=== PATIENT | female | born 1940 | race Caucasian/White ===

== ENCOUNTER 2019-11-23 21:23 | Outpatient (REF) | payer OTHER, SELFPAY ==
[2019-11-23 22:04] LABS: HCT 41.5 % (36.0-46.0); HGB 13.3 g/dL (11.2-15.7); MCH 29.2 pg (27.0-33.0); MCV 91.2 fL (80-95); MPV 10.7 fL (8.0-11.0); Platelet Count 199 10^3/uL (130-400); RBC 4.55 10^6/uL (3.93-5.22); RDW 14.5 % (11.7-14.6); RDW-SD 48.6 fL; WBC 4.91 10^3/uL (4.4-10.8)
[2019-11-23 22:18] LABS: ALT 33 U/L (14-59); AST 32 U/L (15-37); Albumin 4.1 g/dL (3.4-5.0); Alkaline Phosphatase 79 U/L (46-116); Anion Gap 7.3 mmol/L (3-11); BUN 18 mg/dL (7-18); Bilirubin, Total 0.9 mg/dL (0.2-1.0); CO2 30.7 mmol/L (21.0-32.0); CREATININE 0.58 mg/dL (0.55-1.02); Calcium 9.1 mg/dL (8.5-10.1); Calculated LDL 103 mg/dL (<100); Chloride 105 mmol/L (98-107); Cholesterol 169 mg/dL (<200); Glucose 82 mg/dL (74-106); HDL Cholesterol 54 mg/dL (40-60); Potassium 3.8 mmol/L (3.5-5.1); Sodium 143 mmol/L (136-145); Total Protein 7.1 g/dL (6.4-8.2); Triglyceride 64 mg/dL (<150)
== END 2019-11-23 21:43 ==
LOC: NCHCN 21:23
PROVIDERS: PCP Nurse Practitioner Community Health; Visit Provider Nurse Practitioner Community Health
DX: I10 Essential (primary) hypertension (principal); I48.91 Unspecified atrial fibrillation; Z79.899 Other long term (current) drug therapy; Z79.01 Long term (current) use of anticoagulants
CPT/HCPCS: 80053; 80061; 85027

== ENCOUNTER 2020-12-05 11:59 | Outpatient (REF) | payer MEDICARE, SELFPAY ==
[2020-12-05 22:00] LABS: Anion Gap 8.5 mmol/L (3-11); BUN 14 mg/dL (7-18); CO2 29.5 mmol/L (21.0-32.0); CREATININE 0.6 mg/dL (0.55-1.02); Calcium 8.7 mg/dL (8.5-10.1); Chloride 105 mmol/L (98-107); Glucose 78 mg/dL (74-106); Potassium 4.2 mmol/L (3.5-5.1); Sodium 143 mmol/L (136-145)
== END 2020-12-05 12:00 | disposition home or self-care (01) ==
LOC: NCHCN 11:59
PROVIDERS: PCP Nurse Practitioner Community Health; Visit Provider Nurse Practitioner Community Health
DX: I10 Essential (primary) hypertension (principal)
CPT/HCPCS: 80048

== ENCOUNTER 2021-06-05 17:25 | Outpatient (REF) | payer MEDICARE, SELFPAY ==
[2021-06-05 16:35] LABS: Abs Immature Grans 0.01 10^3/uL (0.0-0.06); Absolute Basophil Count 0.08 10^3/uL (0.0-0.2); Absolute Lymphocyte Count 1.19 10^3/uL (1.2-3.4); Absolute Monocyte Count 0.83 10^3/uL (0.1-0.8); Absolute Neutrophil Count 3.19 10^3/uL (1.2-6.7); Basophils % 1.5; Eosinophils % 1.9; HCT 43.7 % (36.0-46.0); HGB 13.5 g/dL (11.2-15.7); Immature Grans % 0.2; MCH 26.6 pg (27.0-33.0); MCHC 30.9 % (32.0-36.0); MCV 86.2 fL (80-95); MPV 11.8 fL (8.0-11.0); Monocytes % 15.4; Platelet Count 170 10^3/uL (130-400); RBC 5.07 10^6/uL (3.93-5.22); RDW 17.1 % (11.7-14.6); RDW-SD 52.1 fL
[2021-06-05 17:09] LABS: ALT 27 U/L (14-59); AST 32 U/L (15-37); Albumin 3.8 g/dL (3.4-5.0); Alkaline Phosphatase 98 U/L (46-116); Anion Gap 7.9 mmol/L (3-11); BUN 13 mg/dL (7-18); Bilirubin, Total 1.3 mg/dL (0.2-1.0); CO2 29.1 mmol/L (21.0-32.0); CREATININE 0.6 mg/dL (0.55-1.02); Calcium 8.7 mg/dL (8.5-10.1); Chloride 104 mmol/L (98-107); Glucose 76 mg/dL (74-106); Potassium 4.2 mmol/L (3.5-5.1); Sodium 141 mmol/L (136-145); TSH 3.77 uIU/mL (0.36-3.74); Total Protein 7.2 g/dL (6.4-8.2)
--- OUTSIDE RECORDS SUMMARY | 2021-06-05 17:27 | XMS_ITS | CCD ---
:1940 Author Care Team Providers Name Role Phone VICTORINA TORRES Attending Physician Unavailable Vital Signs Unknown or Not Available. Allergies Unknown or Not Available. Procedures Unknown or Not Available. History of Immunizations Unknown or Not Available. Problems Unknown or Not Available. Results Unknown or Not Available. Active Medications Unknown or Not Available. Medications Administered During Visit Unknown or Not Available. Encounters Unknown or Not Available. Social History Smoking Status Code Start Date End Date Never smoker [id number] Patient Decision Aids Unknown or Not Available. Discharge Instructions You were admitted to [facility] on 06/05/2021 13:31 You were discharged from [facility] on 06/05/2021 13:31 Should you have any questions prior to d ischarge, please contact a member of your healthcare team. If you have left the [facility] and have any questions, please contact your primary care physician. Chief Complaint and Reason For Visit Unknown or Not Available. Function Status Unknown or Not Available. Plan of Care Unknown or Not Available. Referral/Transition of Care Unknown or Not Available.
[2021-06-05 18:37] LABS: Ferritin 45 ng/mL (8-252); T4 7.1 ug/mL (4.7-13.3)
[2021-06-06 08:41] LABS: NT-proBNP 641 pg/mL (<300)
== END 2021-06-05 17:26 | disposition home or self-care (01) ==
LOC: NCHCN 17:25
PROVIDERS: PCP Nurse Practitioner Community Health; Visit Provider Registered Nurse
DX: R06.00 Dyspnea, unspecified (principal); R94.6 Abnormal results of thyroid function studies; R79.89 Other specified abnormal findings of blood chemistry
CPT/HCPCS: 80053; 82728; 83735; 83880; 84436; 84443; 85025

== ENCOUNTER 2021-07-26 20:18 | Outpatient (REF) | payer MEDICARE, SELFPAY ==
[2021-07-26 21:02] LABS: Abs Immature Grans 0.02 10^3/uL (0.0-0.06); Absolute Basophil Count 0.12 10^3/uL (0.0-0.2); Absolute Eosinophil Count 0.22 10^3/uL (0.0-0.7); Absolute Lymphocyte Count 1.33 10^3/uL (1.2-3.4); Absolute Monocyte Count 0.71 10^3/uL (0.1-0.8); Absolute Neutrophil Count 3.01 10^3/uL (1.2-6.7); Basophils % 2.2; Eosinophils % 4.1; HCT 40.7 % (36.0-46.0); HGB 13.1 g/dL (11.2-15.7); Immature Grans % 0.4; Lymphocytes % 24.6; MCH 26.9 pg (27.0-33.0); MCHC 32.2 % (32.0-36.0); MCV 84 fL (80-95); MPV 11.7 fL (8.0-11.0); Monocytes % 13.1; Neutrophils % 55.6; Platelet Count 145 10^3/uL (130-400); RBC 4.87 10^6/uL (3.93-5.22); RDW 16.9 % (11.7-14.6); RDW-SD 50.6 fL; WBC 5.41 10^3/uL (4.4-10.8)
[2021-07-26 21:23] LABS: ALT 32 U/L (14-59); AST 37 U/L (15-37); Albumin 3.9 g/dL (3.4-5.0); Alkaline Phosphatase 118 U/L (46-116); Anion Gap 11.3 mmol/L (3-11); BUN 18 mg/dL (7-18); Bilirubin, Total 1.6 mg/dL (0.2-1.0); CO2 26.7 mmol/L (21.0-32.0); Calcium 8.9 mg/dL (8.5-10.1); Chloride 101 mmol/L (98-107); Estimated GFR 53.35 (mL/min/1.73m2); Ferritin 31 ng/mL (8-252); Glucose 69 mg/dL (74-106); NT-proBNP 525 pg/mL (<300); Potassium 4.2 mmol/L (3.5-5.1); Sodium 139 mmol/L (136-145); TSH (W/Ref FT4) 6.13 uIU/mL (0.36-3.74); Total Protein 7.4 g/dL (6.4-8.2)
[2021-07-26 21:41] LABS: Prothrombin Time 52.9 sec (9.3-11.0)
[2021-07-26 22:01] LABS: INR 5.9 (0.9-1.1)
[2021-07-26 22:17] LABS: FREE T4 1.24 ng/dL (0.76-1.46)
== END 2021-07-26 20:19 | disposition home or self-care (01) ==
LOC: NCHCN 20:18
PROVIDERS: PCP Nurse Practitioner Community Health; Visit Provider Registered Nurse
DX: I48.91 Unspecified atrial fibrillation (principal); I10 Essential (primary) hypertension; R91.1 Solitary pulmonary nodule
CPT/HCPCS: 80053; 82728; 83880; 84439; 84443; 85025; 85610

== ENCOUNTER 2021-09-17 15:13 | Outpatient (REF) | payer MEDICARE, SELFPAY ==
[2021-09-17 18:51] LABS: TSH (W/Ref FT4) 1.23 uIU/mL (0.36-3.74)
== END 2021-09-17 15:14 | disposition home or self-care (01) ==
LOC: NCHCN 15:13
PROVIDERS: PCP Nurse Practitioner Community Health; Visit Provider Registered Nurse
DX: R94.6 Abnormal results of thyroid function studies (principal)
CPT/HCPCS: 84443

== ENCOUNTER 2021-12-18 17:16 | Outpatient (REF) | payer MEDICARE, SELFPAY ==
[2021-12-18 14:52] LABS: INR 4.7 (0.9-1.1)
[2021-12-18 20:46] LABS: HGB 12.4 g/dL (11.2-15.7); MCV 78 fL (80-95); MPV 10.9 fL (8.0-11.0); Platelet Count 181 10^3/uL (130-400); RBC 5.16 10^6/uL (3.93-5.22); RDW 17.2 % (11.7-14.6); RDW-SD 47.2 fL; WBC 5.13 10^3/uL (4.4-10.8)
[2021-12-18 21:04] LABS: Anion Gap 4.6 mmol/L (3-11); BUN 23 mg/dL (7-18); CO2 29.4 mmol/L (21.0-32.0); Calcium 9.1 mg/dL (8.5-10.1); Chloride 105 mmol/L (98-107); Estimated GFR 56.95 (mL/min/1.73m2); Glucose 82 mg/dL (74-106); NT-proBNP 696 pg/mL (<300); Potassium 4.4 mmol/L (3.5-5.1); Sodium 139 mmol/L (136-145)
== END 2021-12-18 17:17 | disposition home or self-care (01) ==
LOC: NCHCN 17:16
PROVIDERS: PCP Nurse Practitioner Community Health; Visit Provider Family Medicine
DX: Z79.01 Long term (current) use of anticoagulants (principal); I50.9 Heart failure, unspecified; R06.00 Dyspnea, unspecified
CPT/HCPCS: 80048; 85027; 83880; 85610

== ENCOUNTER 2022-01-23 20:46 | Outpatient (REF) | payer MEDICARE, SELFPAY ==
[2022-01-23 21:18] LABS: Anion Gap 7.9 mmol/L (3-11); BUN 15 mg/dL (7-18); CO2 28.1 mmol/L (21.0-32.0); CREATININE 0.9 mg/dL (0.55-1.02); Calcium 8.7 mg/dL (8.5-10.1); Chloride 102 mmol/L (98-107); Estimated GFR 64.63 (mL/min/1.73m2); Glucose 121 mg/dL (74-106); Potassium 3.8 mmol/L (3.5-5.1); Sodium 138 mmol/L (136-145)
== END 2022-01-23 20:47 | disposition home or self-care (01) ==
LOC: NCHCN 20:46
PROVIDERS: PCP Nurse Practitioner Community Health; Visit Provider Registered Nurse
DX: I10 Essential (primary) hypertension (principal)
CPT/HCPCS: 80048

== ENCOUNTER 2022-06-19 17:29 | Outpatient (REF) | payer MEDICARE, SELFPAY ==
[2022-06-19 15:16] LABS: Prothrombin Time 52.1 sec (9.3-11.0)
[2022-06-19 15:29] LABS: INR 5.2 (0.9-1.1)
[2022-06-19 20:42] LABS: Abs Immature Grans 0.01 10^3/uL (0.0-0.06); Absolute Basophil Count 0.09 10^3/uL (0.0-0.2); Absolute Eosinophil Count 0.08 10^3/uL (0.0-0.7); Absolute Lymphocyte Count 0.94 10^3/uL (1.2-3.4); Absolute Neutrophil Count 2.25 10^3/uL (1.2-6.7); Basophils % 2.2; HCT 42.8 % (36.0-46.0); HGB 13.6 g/dL (11.2-15.7); Immature Grans % 0.2; Lymphocytes % 23.1; MCH 25.3 pg (27.0-33.0); MCHC 31.8 % (32.0-36.0); MCV 80 fL (80-95); MPV 9.9 fL (8.0-11.0); Monocytes % 17.2; Neutrophils % 55.3; Platelet Count 151 10^3/uL (130-400); RBC 5.37 10^6/uL (3.93-5.22); RDW 19.2 % (11.7-14.6); RDW-SD 53.5 fL; WBC 4.07 10^3/uL (4.4-10.8)
[2022-06-19 20:55] LABS: ALT 23 U/L (14-59); AST 39 U/L (15-37); Albumin 3.1 g/dL (3.4-5.0); Alkaline Phosphatase 117 U/L (46-116); Anion Gap 4.4 mmol/L (3-11); BUN 19 mg/dL (7-18); Bilirubin, Total 1.5 mg/dL (0.2-1.0); CO2 30.6 mmol/L (21.0-32.0); CREATININE 0.9 mg/dL (0.55-1.02); Calcium 9.1 mg/dL (8.5-10.1); Chloride 102 mmol/L (98-107); Estimated GFR 64.23 (mL/min/1.73m2); Glucose 115 mg/dL (74-106); NT-proBNP 695 pg/mL (<300); Potassium 4.5 mmol/L (3.5-5.1); Sodium 137 mmol/L (136-145); TSH (W/Ref FT4) 7.69 uIU/mL (0.36-3.74)
[2022-06-19 21:12] LABS: FREE T4 1.11 ng/dL (0.76-1.46)
== END 2022-06-19 17:30 | disposition home or self-care (01) ==
LOC: NCHCN 17:29
PROVIDERS: PCP Nurse Practitioner Community Health; Visit Provider Registered Nurse
DX: I50.9 Heart failure, unspecified (principal); R60.0 Localized edema; R06.02 Shortness of breath; I48.91 Unspecified atrial fibrillation; Z79.01 Long term (current) use of anticoagulants
CPT/HCPCS: 80053; 83880; 84439; 84443; 85025; 85610

== ENCOUNTER 2022-06-23 15:53 | Outpatient (REF) | payer MEDICARE, SELFPAY ==
[2022-06-23 22:15] LABS: BUN 17 mg/dL (7-18); CREATININE 0.9 mg/dL (0.55-1.02); Chloride 99 mmol/L (98-107); Estimated GFR 64.23 (mL/min/1.73m2); Glucose 70 mg/dL (74-106); NT-proBNP 705 pg/mL (<300); Potassium 4.3 mmol/L (3.5-5.1); Sodium 139 mmol/L (136-145)
== END 2022-06-23 15:54 | disposition home or self-care (01) ==
LOC: NCHCN 15:53
PROVIDERS: PCP Nurse Practitioner Community Health; Visit Provider Internal Medicine
DX: I50.32 Chronic diastolic (congestive) heart failure (principal)
CPT/HCPCS: 80048; 83880

== ENCOUNTER 2022-06-26 20:43 | Outpatient (REF) | payer MEDICARE, SELFPAY ==
[2022-06-26 21:36] LABS: Anion Gap 3.9 mmol/L (3-11); BUN 18 mg/dL (7-18); CO2 37.1 mmol/L (21.0-32.0); CREATININE 0.9 mg/dL (0.55-1.02); Calcium 9.4 mg/dL (8.5-10.1); Chloride 98 mmol/L (98-107); Estimated GFR 64.23 (mL/min/1.73m2); Glucose 73 mg/dL (74-106); Magnesium 2.1 mg/dL (1.8-2.4); Potassium 3.4 mmol/L (3.5-5.1); Sodium 139 mmol/L (136-145)
== END 2022-06-26 20:44 | disposition home or self-care (01) ==
LOC: NCHCN 20:43
PROVIDERS: PCP Nurse Practitioner Community Health; Visit Provider Internal Medicine
DX: I50.9 Heart failure, unspecified (principal)
CPT/HCPCS: 80048; 83735

== ENCOUNTER 2022-07-03 14:57 | Outpatient (REF) | payer MEDICARE, SELFPAY ==
[2022-07-03 21:14] LABS: Anion Gap 2.6 mmol/L (3-11); BUN 22 mg/dL (7-18); CO2 38.4 mmol/L (21.0-32.0); CREATININE 1.1 mg/dL (0.55-1.02); Calcium 9.2 mg/dL (8.5-10.1); Chloride 99 mmol/L (98-107); Estimated GFR 50.48 (mL/min/1.73m2); Glucose 74 mg/dL (74-106); Potassium 3.9 mmol/L (3.5-5.1); Sodium 140 mmol/L (136-145)
== END 2022-07-03 14:58 | disposition home or self-care (01) ==
LOC: NCHCN 14:57
PROVIDERS: PCP Nurse Practitioner Community Health; Visit Provider Registered Nurse
DX: I50.32 Chronic diastolic (congestive) heart failure (principal); Z79.899 Other long term (current) drug therapy
CPT/HCPCS: 80048

== ENCOUNTER 2022-07-17 21:32 | Outpatient (REF) | payer MEDICARE, SELFPAY ==
[2022-07-17 22:10] LABS: Anion Gap 5.1 mmol/L (3-11); BUN 18 mg/dL (7-18); CO2 32.9 mmol/L (21.0-32.0); CREATININE 0.8 mg/dL (0.55-1.02); Calcium 9.1 mg/dL (8.5-10.1); Chloride 101 mmol/L (98-107); Estimated GFR 73.98 (mL/min/1.73m2); Glucose 85 mg/dL (74-106); Potassium 4.1 mmol/L (3.5-5.1); Sodium 139 mmol/L (136-145)
== END 2022-07-17 21:33 | disposition home or self-care (01) ==
LOC: NCHCN 21:32
PROVIDERS: PCP Nurse Practitioner Community Health; Visit Provider Registered Nurse
DX: I50.9 Heart failure, unspecified (principal)
CPT/HCPCS: 80048

== ENCOUNTER 2022-10-01 16:19 | Outpatient (REF) | payer MEDICARE, SELFPAY ==
[2022-10-01 22:06] LABS: Potassium 4.1 mmol/L (3.5-5.1); TSH (W/Ref FT4) 4.13 uIU/mL (0.36-3.74)
[2022-10-01 22:30] LABS: FREE T4 0.86 ng/dL (0.76-1.46)
== END 2022-10-01 16:20 | disposition home or self-care (01) ==
LOC: NCHCN 16:19
PROVIDERS: PCP Nurse Practitioner Community Health; Visit Provider Registered Nurse
DX: E03.9 Hypothyroidism, unspecified (principal); I50.9 Heart failure, unspecified
CPT/HCPCS: 84132; 84439; 84443

== ENCOUNTER 2023-04-10 18:40 | Outpatient (REF) | payer MEDICARE, SELFPAY ==
[2023-04-10 21:15] LABS: HCT 39.7 % (36.0-46.0); HGB 12.3 g/dL (11.2-15.7); MCH 24.3 pg (27.0-33.0); MCV 78 fL (80-95); MPV 9.6 fL (8.0-11.0); Platelet Count 234 10^3/uL (130-400); RBC 5.07 10^6/uL (3.93-5.22); RDW 17.2 % (11.7-14.6); RDW-SD 48.1 fL; WBC 4.61 10^3/uL (4.4-10.8)
[2023-04-10 21:35] LABS: ALT 26 U/L (14-59); AST 33 U/L (15-37); Albumin 3.9 g/dL (3.4-5.0); Alkaline Phosphatase 110 U/L (46-116); Anion Gap 6.6 mmol/L (3-11); BUN 19 mg/dL (7-18); Bilirubin, Total 1.1 mg/dL (0.2-1.0); CO2 32.4 mmol/L (21.0-32.0); CREATININE 0.8 mg/dL (0.55-1.02); Calcium 9.3 mg/dL (8.5-10.1); Calculated LDL 106 mg/dL (<100); Chloride 100 mmol/L (98-107); Cholesterol 178 mg/dL (<200); Estimated GFR 73.98 (mL/min/1.73m2); Glucose 71 mg/dL (74-106); HDL Cholesterol 58 mg/dL (40-60); Potassium 4.2 mmol/L (3.5-5.1); Sodium 139 mmol/L (136-145); TSH (W/Ref FT4) 4.05 uIU/mL (0.36-3.74); Total Protein 7.7 g/dL (6.4-8.2); Triglyceride 71 mg/dL (<150)
[2023-04-10 21:50] LABS: Vitamin D 25 Total 39.9 ng/mL (30-100)
[2023-04-10 21:59] LABS: FREE T4 0.89 ng/dL (0.76-1.46)
== END 2023-04-10 18:41 | disposition home or self-care (01) ==
LOC: NCHCN 18:40
PROVIDERS: PCP Nurse Practitioner Community Health; Visit Provider Family Medicine
DX: E55.9 Vitamin D deficiency, unspecified; I10 Essential (primary) hypertension
CPT/HCPCS: 80053; 80061; 82306; 85027; 84439; 84443

== ENCOUNTER 2024-03-22 15:25 | Outpatient (REF) | payer MEDICARE, SELFPAY ==
[2024-03-22 21:06] LABS: BUN 38 mg/dL (7-18); CREATININE 1.9 mg/dL (0.55-1.02); Calcium 9.1 mg/dL (8.5-10.1); Chloride 98 mmol/L (98-107); Estimated GFR 26.04 (mL/min/1.73m2); Glucose 95 mg/dL (74-106); Potassium 4.1 mmol/L (3.5-5.1); Sodium 136 mmol/L (136-145)
[2024-03-22 21:10] LABS: HCT 23.8 % (36.0-46.0); MCH 19.6 pg (27.0-33.0); MCHC 28.2 % (32.0-36.0); MCV 70 fL (80-95); MPV 9.9 fL (8.0-11.0); Platelet Count 232 10^3/uL (130-400); RBC 3.41 10^6/uL (3.93-5.22); RDW 19.9 % (11.7-14.6); RDW-SD 48.1 fL; WBC 5.44 10^3/uL (4.4-10.8)
[2024-03-22 21:21] LABS: HGB 6.7 g/dL (11.2-15.7)
== END 2024-03-22 15:26 | disposition home or self-care (01) ==
LOC: NCHCN 15:25
PROVIDERS: PCP Nurse Practitioner Community Health; Visit Provider Family Medicine
DX: I50.32 Chronic diastolic (congestive) heart failure (principal)
CPT/HCPCS: 80048; 85027

== ENCOUNTER 2024-03-28 13:35 | Outpatient (REF) | payer MEDICARE, SELFPAY ==
[2024-03-28 14:53] LABS: HCT 27.9 % (36.0-46.0); MCH 20.9 pg (27.0-33.0); MPV 10.1 fL (8.0-11.0); Platelet Count 203 10^3/uL (130-400); RBC 3.83 10^6/uL (3.93-5.22); RDW-SD 58.5 fL; WBC 4.76 10^3/uL (4.4-10.8)
[2024-03-28 14:59] LABS: BUN 32 mg/dL (7-18); CREATININE 1.5 mg/dL (0.55-1.02); Calcium 8.9 mg/dL (8.5-10.1); Chloride 100 mmol/L (98-107); Estimated GFR 34.58 (mL/min/1.73m2); Glucose 97 mg/dL (74-106); Potassium 4.1 mmol/L (3.5-5.1); Sodium 138 mmol/L (136-145)
[2024-03-28 15:30] LABS: MCV 73 fL (80-95); RDW 22.8 % (11.7-14.6)
[2024-03-28 15:31] LABS: MCHC 28.7 % (32.0-36.0)
== END 2024-03-28 13:36 | disposition home or self-care (01) ==
LOC: NCHCN 13:35
PROVIDERS: PCP Nurse Practitioner Community Health; Visit Provider Family Medicine
DX: D64.9 Anemia, unspecified (principal)
CPT/HCPCS: 80048; 85027

== ENCOUNTER 2024-05-19 11:44 | Outpatient (REF) | payer MEDICARE, SELFPAY ==
[2024-05-19 14:52] LABS: HCT 28.5 % (36.0-46.0); MCH 19.5 pg (27.0-33.0); MCHC 28.1 % (32.0-36.0); MPV 9.4 fL (8.0-11.0); Platelet Count 279 10^3/uL (130-400); RBC 4.11 10^6/uL (3.93-5.22); RDW-SD 55.7 fL; WBC 4.59 10^3/uL (4.4-10.8)
[2024-05-19 15:40] LABS: MCV 69 fL (80-95); RDW 22.6 % (11.7-14.6)
[2024-05-19 15:43] LABS: Anion Gap 8.3 mmol/L (3-11); BUN 16 mg/dL (7-18); CO2 33.7 mmol/L (21.0-32.0); CREATININE 0.9 mg/dL (0.55-1.02); Calcium 9.2 mg/dL (8.5-10.1); Chloride 100 mmol/L (98-107); Estimated GFR 63.43 (mL/min/1.73m2); Glucose 149 mg/dL (74-106); Sodium 142 mmol/L (136-145)
[2024-05-19 15:56] LABS: Potassium 2.9 mmol/L (3.5-5.1)
== END 2024-05-19 11:45 | disposition home or self-care (01) ==
LOC: NCHCN 11:44
PROVIDERS: PCP Nurse Practitioner Community Health; Visit Provider Family Medicine
DX: N18.30 Chronic kidney disease, stage 3 unspecified (principal)
CPT/HCPCS: 80048; 85027

== ENCOUNTER 2024-06-23 15:10 | Outpatient (REF) | payer MEDICARE, SELFPAY ==
[2024-06-23 21:44] LABS: Anion Gap 2.8 mmol/L (3-11); BUN 18 mg/dL (7-18); CO2 39.2 mmol/L (21.0-32.0); Calcium 9.2 mg/dL (8.5-10.1); Chloride 95 mmol/L (98-107); Glucose 79 mg/dL (74-106); Sodium 137 mmol/L (136-145)
[2024-06-23 21:53] LABS: Potassium 2.6 mmol/L (3.5-5.1)
== END 2024-06-23 15:11 | disposition home or self-care (01) ==
LOC: NCHCN 15:10
PROVIDERS: PCP Nurse Practitioner Community Health; Visit Provider Family Medicine
DX: E87.6 Hypokalemia (principal)
CPT/HCPCS: 80048

== ENCOUNTER 2024-06-30 15:03 | Outpatient (REF) | payer MEDICARE, SELFPAY ==
[2024-06-30 21:12] LABS: HCT 27.7 % (36.0-46.0); HGB 7.6 g/dL (11.2-15.7); MCHC 27.4 % (32.0-36.0); MPV 10.1 fL (8.0-11.0); Platelet Count 258 10^3/uL (130-400); RBC 3.98 10^6/uL (3.93-5.22); WBC 4.61 10^3/uL (4.4-10.8)
[2024-06-30 21:23] LABS: Anion Gap 6.3 mmol/L (3-11); BUN 22 mg/dL (7-18); CO2 31.7 mmol/L (21.0-32.0); CREATININE 1.2 mg/dL (0.55-1.02); Calcium 9.2 mg/dL (8.5-10.1); Chloride 97 mmol/L (98-107); Estimated GFR 44.91 (mL/min/1.73m2); Glucose 96 mg/dL (74-106); Potassium 5.2 mmol/L (3.5-5.1); Sodium 135 mmol/L (136-145)
[2024-06-30 21:34] LABS: MCV 70 fL (80-95)
[2024-06-30 21:35] LABS: MCH 19.1 pg (27.0-33.0)
[2024-06-30 21:36] LABS: RDW 24.1 % (11.7-14.6)
== END 2024-06-30 15:04 | disposition home or self-care (01) ==
LOC: NCHCN 15:03
PROVIDERS: PCP Nurse Practitioner Community Health; Visit Provider Family Medicine
DX: Z87.19 Personal history of other diseases of the digestive system (principal); E87.6 Hypokalemia; Z09 Encounter for follow-up examination after completed treatment for conditions other than malignant neoplasm
CPT/HCPCS: 80048; 85027

== ENCOUNTER 2024-07-08 21:57 | Outpatient (REF) | payer MEDICARE, SELFPAY ==
[2024-07-08 21:48] LABS: HCT 30.2 % (36.0-46.0); HGB 8.6 g/dL (11.2-15.7); MCHC 28.5 % (32.0-36.0); MPV 9.5 fL (8.0-11.0); Platelet Count 275 10^3/uL (130-400); RBC 4.43 10^6/uL (3.93-5.22); RDW-SD 53.7 fL; WBC 4.33 10^3/uL (4.4-10.8)
[2024-07-08 21:54] LABS: Anion Gap 3.1 mmol/L (3-11); BUN 18 mg/dL (7-18); CO2 37.9 mmol/L (21.0-32.0); Calcium 9.1 mg/dL (8.5-10.1); Chloride 98 mmol/L (98-107); Glucose 89 mg/dL (74-106); Sodium 139 mmol/L (136-145)
[2024-07-08 22:01] LABS: MCV 68 fL (80-95)
[2024-07-08 22:02] LABS: MCH 19.4 pg (27.0-33.0); RDW 23.3 % (11.7-14.6)
== END 2024-07-08 21:58 | disposition home or self-care (01) ==
LOC: NCHCN 21:57
PROVIDERS: PCP Nurse Practitioner Community Health; Visit Provider Family Medicine
DX: I50.32 Chronic diastolic (congestive) heart failure (principal)
CPT/HCPCS: 80048; 85027

== ENCOUNTER 2024-07-25 18:12 | Outpatient (REF) | payer MEDICARE, SELFPAY ==
[2024-07-25 21:33] LABS: HCT 30.3 % (36.0-46.0); HGB 8.7 g/dL (11.2-15.7); MCH 19.4 pg (27.0-33.0); MPV 9.2 fL (8.0-11.0); Platelet Count 258 10^3/uL (130-400); RBC 4.48 10^6/uL (3.93-5.22); RDW 22.2 % (11.7-14.6); WBC 5.07 10^3/uL (4.4-10.8)
[2024-07-25 21:55] LABS: BUN 20 mg/dL (7-18); CREATININE 0.9 mg/dL (0.55-1.02); Calcium 8.7 mg/dL (8.5-10.1); Chloride 99 mmol/L (98-107); Estimated GFR 63.43 (mL/min/1.73m2); Glucose 113 mg/dL (74-106); Potassium 3.2 mmol/L (3.5-5.1); Sodium 139 mmol/L (136-145)
[2024-07-25 22:17] LABS: MCV 68 fL (80-95)
[2024-07-25 22:18] LABS: MCHC 28.7 % (32.0-36.0)
== END 2024-07-25 18:13 | disposition home or self-care (01) ==
LOC: NCHCN 18:12
PROVIDERS: PCP Nurse Practitioner Community Health; Visit Provider Family Medicine
DX: D64.9 Anemia, unspecified (principal); E87.6 Hypokalemia
CPT/HCPCS: 80048; 85027

== ENCOUNTER 2024-08-08 18:18 | Outpatient (REF) | payer MEDICARE, SELFPAY ==
[2024-08-08 21:23] LABS: Iron 22 ug/dL (50-170); Total Iron Binding Capacity 609 ug/dL (250-450); Transferrin Sat 4 % (15-50)
[2024-08-08 21:34] LABS: BUN 17 mg/dL (7-18); Calcium 8.9 mg/dL (8.5-10.1); Chloride 98 mmol/L (98-107); Ferritin 19 ng/mL (8-252); Glucose 87 mg/dL (74-106); Potassium 4.2 mmol/L (3.5-5.1); Sodium 136 mmol/L (136-145)
== END 2024-08-08 18:19 | disposition home or self-care (01) ==
LOC: NCHCN 18:18
PROVIDERS: PCP Nurse Practitioner Community Health; Visit Provider Family Medicine
DX: E61.1 Iron deficiency (principal); E87.6 Hypokalemia
CPT/HCPCS: 80048; 82728; 83540; 83550

== ENCOUNTER 2024-09-26 16:22 | Outpatient (REF) | payer MEDICARE, SELFPAY ==
[2024-09-26 14:55] LABS: HCT 30.8 % (36.0-46.0); HGB 8.9 g/dL (11.2-15.7); MCH 19.8 pg (27.0-33.0); MPV 8.9 fL (8.0-11.0); Platelet Count 194 10^3/uL (130-400); RBC 4.49 10^6/uL (3.93-5.22); RDW-SD 55.6 fL; WBC 4.00 10^3/uL (4.4-10.8)
[2024-09-26 15:09] LABS: MCHC 28.9 % (32.0-36.0); MCV 69 fL (80-95)
[2024-09-26 15:11] LABS: RDW 23.1 % (11.7-14.6)
[2024-09-26 16:29] LABS: Anion Gap 4.7 mmol/L (3-11); BUN 19 mg/dL (7-18); CO2 36.3 mmol/L (21.0-32.0); Calcium 9.3 mg/dL (8.5-10.1); Chloride 99 mmol/L (98-107); Estimated GFR 85.76 (mL/min/1.73m2); Ferritin 24 ng/mL (8-252); Glucose 86 mg/dL (74-106); Potassium 3.8 mmol/L (3.5-5.1); Sodium 140 mmol/L (136-145)
[2024-09-26 19:28] LABS: Iron 41 ug/dL (50-170); Total Iron Binding Capacity 573 ug/dL (250-450)
== END 2024-09-26 16:23 | disposition home or self-care (01) ==
LOC: NCHCN 16:22
PROVIDERS: PCP Nurse Practitioner Community Health; Visit Provider Family Medicine
DX: D64.9 Anemia, unspecified (principal); E87.6 Hypokalemia
CPT/HCPCS: 80048; 85027; 82728; 83540; 83550

== ENCOUNTER 2024-11-23 09:53 | Outpatient (REF) | payer MEDICARE, SELFPAY ==
[2024-11-23 15:10] LABS: HCT 42.6 % (36.0-46.0); HGB 13.0 g/dL (11.2-15.7); MCH 21.6 pg (27.0-33.0); MCHC 30.5 % (32.0-36.0); Platelet Count 238 10^3/uL (130-400); RBC 6.02 10^6/uL (3.93-5.22); RDW-SD 55.7 fL; WBC 4.13 10^3/uL (4.4-10.8)
[2024-11-23 15:22] LABS: MCV 71 fL (80-95); RDW 23.1 % (11.7-14.6)
[2024-11-23 15:29] LABS: Anion Gap 8.8 mmol/L (3-11); BUN 42 mg/dL (7-18); CO2 41.2 mmol/L (21.0-32.0); Calcium 9.8 mg/dL (8.5-10.1); Chloride 87 mmol/L (98-107); Estimated GFR 44.91 (mL/min/1.73m2); Glucose 77 mg/dL (74-106); Sodium 137 mmol/L (136-145)
[2024-11-23 15:37] LABS: Potassium 2.3 mmol/L (3.5-5.1)
== END 2024-11-23 09:54 | disposition home or self-care (01) ==
LOC: NCHCN 09:53
PROVIDERS: PCP Nurse Practitioner Community Health; Visit Provider Family Medicine
DX: I50.32 Chronic diastolic (congestive) heart failure (principal)
CPT/HCPCS: 80048; 85027

== ENCOUNTER 2024-12-07 10:43 | Outpatient (REF) | payer MEDICARE, SELFPAY ==
[2024-12-07 15:53] LABS: Anion Gap 8.7 mmol/L (3-11); BUN 10 mg/dL (7-18); CO2 33.3 mmol/L (21.0-32.0); Calcium 8.9 mg/dL (8.5-10.1); Chloride 98 mmol/L (98-107); Estimated GFR 85.76 (mL/min/1.73m2); Glucose 126 mg/dL (74-106); Magnesium 1.9 mg/dL (1.8-2.4); Potassium 3.0 mmol/L (3.5-5.1); Sodium 140 mmol/L (136-145)
== END 2024-12-07 10:44 | disposition home or self-care (01) ==
LOC: NCHCN 10:43
PROVIDERS: PCP Nurse Practitioner Community Health; Visit Provider Family Medicine
DX: E87.6 Hypokalemia (principal); E83.42 Hypomagnesemia
CPT/HCPCS: 80048; 83735

== ENCOUNTER 2024-12-26 15:12 | Outpatient (REF) | payer MEDICARE, SELFPAY ==
[2024-12-26 21:37] LABS: Anion Gap 7.9 mmol/L (3-11); BUN 23 mg/dL (7-18); CO2 38.1 mmol/L (21.0-32.0); Calcium 9.7 mg/dL (8.5-10.1); Chloride 91 mmol/L (98-107); Glucose 70 mg/dL (74-106); Potassium 3.1 mmol/L (3.5-5.1); Sodium 137 mmol/L (136-145)
== END 2024-12-26 15:13 | disposition home or self-care (01) ==
LOC: NCHCN 15:12
PROVIDERS: PCP Nurse Practitioner Community Health; Visit Provider Family Medicine
DX: E87.6 Hypokalemia (principal); E83.42 Hypomagnesemia
CPT/HCPCS: 80048